=== PATIENT | male | born 1965 ===

== ENCOUNTER 2021-01-10 16:18 | Emergency (ER) | payer OTHER ==
--- NOTE | 2021-01-10 17:52 | EDM.PDOC ---
ED HPI GENERAL MEDICAL PROBLEM - General Chief Complaint: General Stated Complaint: sore throat Time Seen by Provider: 01/10/21 17:20 Source of Information: Reports: Patient History Limitations: Reports: No Limitations - History of Present Illness INITIAL COMMENTS - FREE TEXT/NARRATIVE: patient presented to the ER with a c/o mild sore throat. no fever or chills h/o acid reflux disease for which he takes PPI. He is worried about covid and wants to be tested received 2 doses of moderna - Related Data Allergies Allergy/AdvReac Type Severity Reaction Status Date / Time No Known Allergies Allergy Verified 01/10/21 17:45 Home Meds: Home Meds Omeprazole 20 mg PO DAILY 01/10/21 [History] allopurinoL [Zyloprim] 100 mg PO DAILY 01/10/21 [History] ED ROS GENERAL - Review of Systems Review Of Systems: See Below Constitutional: Reports: No Symptoms HEENT: Reports: No Symptoms Respiratory: Reports: No Symptoms Cardiovascular: Reports: No Symptoms GI/Abdominal: Reports: No Symptoms Musculoskeletal: Reports: No Symptoms Skin: Reports: No Symptoms ED EXAM, GENERAL - Physical Exam Exam: See Below Exam Limited By: No Limitations General Appearance: Alert, WD/WN, No Apparent Distress Eye Exam: Bilateral Eye: EOMI, PERRL Respiratory/Chest: No Respiratory Distress Cardiovascular: Normal Peripheral Pulses GI/Abdominal: Normal Bowel Sounds Extremities: Normal Inspection Neurological: Alert, Oriented Course - Vital Signs Last Recorded V/S: Last Vital Signs Temp 37.1 C 01/10/21 17:40 Pulse 72 01/10/21 17:40 Resp 18 01/10/21 17:40 BP 173/90 H 01/10/21 17:40 Pulse Ox 98 01/10/21 17:40 - Orders/Labs/Meds Labs: Laboratory Tests 01/10/21 Range/Units 16:44 SARS-CoV-2 RNA (SOURAV) Negative (NEGATIVE) - Re-Assessments/Exams Free Text/Narrative Re-Assessment/Exam: covid test is negative symptoms probably acid reflux related Departure - Departure Time of Disposition: 17:51 Disposition: Home, Self-Care 01 Condition: Good Clinical Impression: Mild acid reflux - Discharge Information *PRESCRIPTION DRUG MONITORING PROGRAM REVIEWED*: Not Applicable *COPY OF PRESCRIPTION DRUG MONITORING REPORT IN PATIENT BRIELLE: Not Applicable Instructions: COVID-19: What Your Test Results Mean - CDC, COVID-19: How to Protect Yourself and Others - CDC, Sore Throat, [id number] Referrals: PCP,Unknown [Primary Care Provider] - Forms: ED Department Discharge Additional Instructions: - follow up with your PCP in 2-4 weeks to discuss your acid reflux - recommend to obtain a test for H.Pylori - bacteria in the stomach - avoid eating within 2-3 hrs of going to bed - return to the ER if any concerns or fever Sepsis Event Note (ED) - Evaluation Sepsis Screening Result: No Definite Risk - Focused Exam Vital Signs: Vital Signs Temp Pulse Resp BP Pulse Ox 01/10/21 17:40 37.1 C 72 18 173/90 H 98 01/10/21 16:42 18 - Problem List & Annotations (1) Mild acid reflux SNOMED Code(s): 260202608 Code(s): K21.9 - GASTRO-ESOPHAGEAL REFLUX DISEASE WITHOUT ESOPHAGITIS Status: Acute Priority: Low Current Visit: Yes - Problem List Review Problem List Initiated/Reviewed/Updated: Yes - Assessment/Plan Plan: - follow up with your PCP in 2-4 weeks to discuss your acid reflux - recommend to obtain a test for H.Pylori - bacteria in the stomach - avoid eating within 2-3 hrs of going to bed - return to the ER if any concerns or fever
== END 2021-01-10 18:01 | disposition home or self-care (01) ==
LOC: LB.ED 16:18
DX: K21.9 Gastro-esophageal reflux disease without esophagitis (principal); Z79.899 Other long term (current) drug therapy; Z20.822 Contact with and (suspected) exposure to COVID-19
CPT/HCPCS: 99283; U0002